=== PATIENT | male | born 1940 | race Caucasian/White ===

== ENCOUNTER 2021-10-19 10:25 | Outpatient (CLI) | payer MEDICARE, BC | END 2021-10-19 10:26 | disposition home or self-care (01) | LOC: CSHWCC 10:25 | PROVIDERS: ATTEND Nurse Practitioner Family | DX: L97.522 Non-pressure chronic ulcer of other part of left foot with fat layer exposed (principal); R60.0 Localized edema | CPT/HCPCS: 29581 ==

== ENCOUNTER 2021-11-03 08:19 | Outpatient (CLI) | payer MEDICARE, BC | END 2021-11-03 08:20 | disposition home or self-care (01) | LOC: CSHWCC 08:19 | PROVIDERS: ATTEND Nurse Practitioner Family | DX: L97.522 Non-pressure chronic ulcer of other part of left foot with fat layer exposed (principal); R60.0 Localized edema | CPT/HCPCS: 29581 ==

== ENCOUNTER 2021-11-07 12:47 | Outpatient (CLI) | payer MEDICARE, BC | END 2021-11-07 12:48 | disposition home or self-care (01) | LOC: CSHWCC 12:47 | PROVIDERS: ATTEND Nurse Practitioner Family | DX: L97.522 Non-pressure chronic ulcer of other part of left foot with fat layer exposed (principal); R60.0 Localized edema | CPT/HCPCS: 29581; 97139; G0463; 99213 ==

== ENCOUNTER 2021-11-09 09:45 | Outpatient (CLI) | payer MEDICARE, BC | END 2021-11-09 09:46 | disposition home or self-care (01) | LOC: CSHWCC 09:45 | PROVIDERS: ATTEND Nurse Practitioner Family | DX: L97.522 Non-pressure chronic ulcer of other part of left foot with fat layer exposed (principal); R60.0 Localized edema | CPT/HCPCS: 29581 ==

== ENCOUNTER 2021-11-11 10:19 | Outpatient (CLI) | payer MEDICARE, BC | END 2021-11-11 10:20 | disposition home or self-care (01) | LOC: CSHWCC 10:19 | PROVIDERS: ATTEND Nurse Practitioner Family | DX: L97.522 Non-pressure chronic ulcer of other part of left foot with fat layer exposed (principal); R60.0 Localized edema | CPT/HCPCS: 29581; 97139; G0463; 99212 ==

== ENCOUNTER 2021-11-14 13:29 | Outpatient (CLI) | payer MEDICARE, BC | END 2021-11-14 13:30 | disposition home or self-care (01) | LOC: CSHWCC 13:29 | PROVIDERS: ATTEND Nurse Practitioner Family | DX: L97.522 Non-pressure chronic ulcer of other part of left foot with fat layer exposed (principal); R60.0 Localized edema | CPT/HCPCS: 29581 ==

== ENCOUNTER 2021-11-16 13:35 | Outpatient (CLI) | payer MEDICARE, BC | END 2021-11-16 13:36 | disposition home or self-care (01) | LOC: CSHWCC 13:35 | PROVIDERS: ATTEND Nurse Practitioner Family | DX: L97.522 Non-pressure chronic ulcer of other part of left foot with fat layer exposed (principal); R60.0 Localized edema | CPT/HCPCS: 29581; 97139; G0463; 99213 ==

== ENCOUNTER 2021-11-21 10:18 | Outpatient (CLI) | payer MEDICARE, BC | END 2021-11-21 10:19 | disposition home or self-care (01) | LOC: CSHWCC 10:18 | PROVIDERS: ATTEND Nurse Practitioner Family | DX: L97.522 Non-pressure chronic ulcer of other part of left foot with fat layer exposed (principal); R60.0 Localized edema | CPT/HCPCS: 29581 ==

== ENCOUNTER 2021-11-23 10:02 | Outpatient (CLI) | payer MEDICARE, BC | END 2021-11-23 10:03 | disposition home or self-care (01) | LOC: CSHWCC 10:02 | PROVIDERS: ATTEND Nurse Practitioner Family | DX: L97.522 Non-pressure chronic ulcer of other part of left foot with fat layer exposed (principal); R60.0 Localized edema | CPT/HCPCS: 29581; 97139; G0463; 99213 ==

== ENCOUNTER 2021-11-25 09:00 | Outpatient (CLI) | payer MEDICARE, BC | END 2021-11-25 09:01 | disposition home or self-care (01) | LOC: CSHWCC 09:00 | PROVIDERS: ATTEND Nurse Practitioner Family | DX: L97.522 Non-pressure chronic ulcer of other part of left foot with fat layer exposed (principal); R60.0 Localized edema | CPT/HCPCS: 29581; 97139; G0463; 99212 ==

== ENCOUNTER 2021-11-28 14:00 | Outpatient (CLI) | payer MEDICARE, BC | END 2021-11-28 14:01 | disposition home or self-care (01) | LOC: CSHWCC 14:00 | PROVIDERS: ATTEND Nurse Practitioner Family | DX: L97.522 Non-pressure chronic ulcer of other part of left foot with fat layer exposed (principal); R60.0 Localized edema | CPT/HCPCS: 29581 ==

== ENCOUNTER 2021-12-09 08:42 | Outpatient (CLI) | payer MEDICARE, BC | END 2021-12-09 08:43 | disposition home or self-care (01) | LOC: CSHWCC 08:42 | PROVIDERS: ATTEND Nurse Practitioner Family | DX: L97.522 Non-pressure chronic ulcer of other part of left foot with fat layer exposed (principal); R60.0 Localized edema ==

== ENCOUNTER 2022-01-31 12:07 | Inpatient (IN) | payer MEDICARE, BC ==
[2022-01-31 13:12] LABS: Hemoglobin 12.4 g/dL (13.5-17.5); Mean Corpuscular HGB CONC 33.4 g/dL (32.0-36.0); Mean Corpuscular Hemoglobin 31.6 pg (27.0-33.0); Mean Corpuscular Volume 94.6 fl (81.2-95.1); Mean Platelet Volume 10.2 fl (7.4-10.4); Platelet Count 131 10x3/uL (150-450); RBC Distribution Width 15.1 % (11.5-14.5); Red Blood Cell (RBC) Count 3.92 10x6/uL (4.32-5.72); White Blood Cell (WBC) Count 4.4 10x3/uL (3.5-10.5)
[2022-01-31 13:24] LABS: Anion Gap 12 mmol/L (10-20); BUN (Urea Nitrogen) 20 mg/dL (8.4-25.7); Calc. Creatinine Clearance 0 mL/min (70-130); Carbon Dioxide 27 mmol/L (23-31); Chloride 102 mmol/L (98-107); Potassium 4.3 mmol/L (3.5-5.1); Sodium 137 mmol/L (136-145)
[2022-01-31 13:25] LABS: ALT (SGPT) 37 U/L (8-55); AST (SGOT) 45 U/L (5-34); Albumin 3.9 g/dL (3.4-4.8); Alkaline Phosphatase 94 U/L (40-110); Bilirubin, Total 0.8 mg/dL (0.2-1.2); Calcium 8.9 mg/dL (7.8-10.44); Estimated GFR 48; Globulin 3.3 g/dL (2.4-3.5); Glucose 142 mg/dL (83-110); Protein, Total 7.2 g/dL (5.8-8.1)
[2022-01-31] MEDS ORDERED: Cefepime 2 GM VIAL ONE (13:30)
[2022-01-31 13:37] LABS: MDiff Complete? YES
[2022-01-31] MEDS ORDERED: Vancomycin 1.5 GRAM/300 ML BAG 1.5 GM in Premix Bag 1 BAG IVPB SCH (13:45)
[2022-01-31 13:56] LABS: Eosinophils 2 % (0-10); Lymphocytes 26 % (21-51); Monocytes 17 % (0-10); Neutrophil 51 % (42-75); Reactive Lymphocytes 4 % (0-10)
[2022-01-31 13:59] LABS: Large Platelets SLIGHT; Platelet Morphology Comment Appears Adequate; RBC Morphology Normal
[2022-01-31 14:05] LABS: SARS-CoV-2 NAA Rapid Test Not Detected (NotDetected)
[2022-01-31] MEDS ORDERED: Ketorolac Tromethamine 30 MG/ML VIAL ONE (14:49)
[2022-01-31] MEDS ORDERED: HumaLOG 300 UNITS/3 ML VIAL SC PRN ×2 (15:21)
[2022-01-31] MEDS ORDERED: Dextrose 5% in Water 1,000 ML IV PRN (15:21)
[2022-01-31] MEDS ORDERED: Dextrose 50% Abboject 50 ML SYRINGE SLOW IVP PRN (15:21)
[2022-01-31] MEDS ORDERED: Acetaminophen 325 MG TAB PO PRN (15:21)
[2022-01-31 18:20] VITALS: BMI 26.0
[2022-01-31 20:03] LABS: Hemoglobin A1c 6.5 % (4.0-6.0)
[2022-01-31] MEDS ORDERED: Carvedilol 12.5 MG TAB PO SCH (21:00)
[2022-01-31] MEDS: Atorvastatin Calcium 20 MG TAB PO SCH (21:17)
[2022-01-31] MEDS: Sodium Chloride 0.9% 1,000 ML IV SCH (21:23)
[2022-01-31] MEDS: Pregabalin 50 MG CAP PO SCH (21:25)
[2022-01-31] MEDS: Carvedilol 12.5 MG TAB PO SCH (21:25)
[2022-01-31] MEDS: HYDROcodone/Acetaminophen 10/325 mg Tablet PO PRN (21:26)
[2022-02-01] MEDS ORDERED: Morphine 2 MG/ML VIAL ONE (01:25)
[2022-02-01] MEDS: Cefepime 1 GM in Sodium Chloride 0.9% 100 ML IVPB SCH ×3 (01:25→23:45)
[2022-02-01] MEDS ORDERED: Ondansetron PF 4 MG/2 ML Vial ONE (01:25)
[2022-02-01] MEDS ORDERED: Ondansetron PF 4 MG/2 ML Vial IVP PRN (05:07)
[2022-02-01] MEDS: Sodium Chloride 0.9% 1,000 ML IV SCH ×3 (05:31→21:24)
[2022-02-01 06:48] LABS: Anion Gap 12 mmol/L (10-20); BUN (Urea Nitrogen) 25 mg/dL (8.4-25.7); Calc. Creatinine Clearance 56 mL/min (70-130); Calcium 8.3 mg/dL (7.8-10.44); Carbon Dioxide 24 mmol/L (23-31); Chloride 108 mmol/L (98-107); Estimated GFR 59; Glucose 130 mg/dL (83-110); Potassium 4.5 mmol/L (3.5-5.1); Sodium 139 mmol/L (136-145)
[2022-02-01 06:49] LABS: Platelet Count 104 10x3/uL (150-450)
[2022-02-01 06:55] LABS: Hemoglobin 10.9 g/dL (13.5-17.5); MDiff Complete? YES; Manual Diff?? YES; Mean Corpuscular HGB CONC 34.1 g/dL (32.0-36.0); Mean Corpuscular Hemoglobin 32.2 pg (27.0-33.0); Mean Corpuscular Volume 94.4 fl (81.2-95.1); Mean Platelet Volume 10.1 fl (7.4-10.4); RBC Distribution Width 14.8 % (11.5-14.5); Red Blood Cell (RBC) Count 3.39 10x6/uL (4.32-5.72); White Blood Cell (WBC) Count 3.3 10x3/uL (3.5-10.5)
[2022-02-01 06:57] LABS: Band 3 % (5-11); Eosinophils 1 % (0-10); Lymphocytes 20 % (21-51); Monocytes 26 % (0-10); Neutrophil 50 % (42-75); Platelet Morphology Comment Appears Decreased
[2022-02-01] MEDS: Amiodarone 200 MG TAB PO SCH (09:49)
[2022-02-01] MEDS: HYDROcodone/Acetaminophen 10/325 mg Tablet PO PRN ×2 (09:49→21:21)
[2022-02-01] MEDS: Pregabalin 50 MG CAP PO SCH ×2 (09:50→21:23)
[2022-02-01] MEDS: Enoxaparin Sodium 40 MG/0.4 ML SYRINGE SC SCH (09:51)
[2022-02-01] MEDS: Citalopram 20 MG TAB PO SCH (09:51)
[2022-02-01] MEDS: Aspirin 81 mg Enteric Coated Tablet PO SCH (09:51)
[2022-02-01] MEDS: Morphine 2 MG/ML VIAL SLOW IVP PRN (18:36)
[2022-02-01] MEDS: Carvedilol 12.5 MG TAB PO SCH (21:21)
[2022-02-01] MEDS: Atorvastatin Calcium 20 MG TAB PO SCH (21:21)
[2022-02-02 03:59] LABS: Hemoglobin 10.6 g/dL (13.5-17.5)
[2022-02-02 04:02] LABS: Anion Gap 10 mmol/L (10-20); BUN (Urea Nitrogen) 20 mg/dL (8.4-25.7); Calc. Creatinine Clearance 75 mL/min (70-130); Carbon Dioxide 23 mmol/L (23-31); Chloride 108 mmol/L (98-107); Estimated GFR 83; Glucose 120 mg/dL (83-110); Mean Corpuscular HGB CONC 33.3 g/dL (32.0-36.0); Mean Corpuscular Hemoglobin 31.8 pg (27.0-33.0); Mean Corpuscular Volume 95.5 fl (81.2-95.1); Mean Platelet Volume 10.3 fl (7.4-10.4); Platelet Count 106 10x3/uL (150-450); Potassium 4.4 mmol/L (3.5-5.1); RBC Distribution Width 14.9 % (11.5-14.5); Red Blood Cell (RBC) Count 3.33 10x6/uL (4.32-5.72); Sodium 137 mmol/L (136-145); White Blood Cell (WBC) Count 3.1 10x3/uL (3.5-10.5)
[2022-02-02 04:56] LABS: MDiff Complete? YES
[2022-02-02 05:05] LABS: Band 3 % (5-11); Eosinophils 2 % (0-10); Lymphocytes 28 % (21-51); Monocytes 19 % (0-10); Neutrophil 48 % (42-75)
[2022-02-02 05:20] LABS: Anisocytosis SLIGHT = 6-15 cells (100X) (0-5/hpf)
[2022-02-02 05:21] LABS: Platelet Morphology Comment Appears Adequate
[2022-02-02] MEDS: HYDROcodone/Acetaminophen 10/325 mg Tablet PO PRN (05:31)
[2022-02-02] MEDS: Pregabalin 50 MG CAP PO SCH ×2 (09:03→20:20)
[2022-02-02] MEDS: Enoxaparin Sodium 40 MG/0.4 ML SYRINGE SC SCH (09:03)
[2022-02-02] MEDS: Aspirin 81 mg Enteric Coated Tablet PO SCH (09:04)
[2022-02-02] MEDS: Citalopram 20 MG TAB PO SCH (09:04)
[2022-02-02] MEDS: Amiodarone 200 MG TAB PO SCH (09:05)
[2022-02-02] MEDS: Cefepime 1 GM in Sodium Chloride 0.9% 100 ML IVPB SCH (11:52)
[2022-02-02] MEDS: Sodium Chloride 0.9% 1,000 ML IV SCH ×2 (16:39→23:51)
[2022-02-02] MEDS: Morphine 2 MG/ML VIAL SLOW IVP PRN (20:16)
[2022-02-02] MEDS: Carvedilol 12.5 MG TAB PO SCH (20:20)
[2022-02-02] MEDS: Atorvastatin Calcium 20 MG TAB PO SCH (20:20)
[2022-02-03] MEDS: Cefepime 1 GM in Sodium Chloride 0.9% 100 ML IVPB SCH (00:07)
[2022-02-03] MEDS: Sodium Chloride 0.9% 1,000 ML IV SCH ×2 (03:59→14:20)
[2022-02-03 04:56] LABS: Hemoglobin 10.9 g/dL (13.5-17.5); Mean Corpuscular HGB CONC 33.1 g/dL (32.0-36.0); Mean Corpuscular Hemoglobin 31.7 pg (27.0-33.0); Mean Corpuscular Volume 95.6 fl (81.2-95.1); Mean Platelet Volume 10.3 fl (7.4-10.4); Platelet Count 106 10x3/uL (150-450); RBC Distribution Width 14.6 % (11.5-14.5); Red Blood Cell (RBC) Count 3.44 10x6/uL (4.32-5.72); White Blood Cell (WBC) Count 2.6 10x3/uL (3.5-10.5)
[2022-02-03 05:15] LABS: Anion Gap 10 mmol/L (10-20); BUN (Urea Nitrogen) 14 mg/dL (8.4-25.7); Calc. Creatinine Clearance 87 mL/min (70-130); Calcium 8.4 mg/dL (7.8-10.44); Carbon Dioxide 25 mmol/L (23-31); Chloride 110 mmol/L (98-107); Estimated GFR 88; Glucose 103 mg/dL (83-110); Potassium 4.3 mmol/L (3.5-5.1); Sodium 141 mmol/L (136-145)
[2022-02-03 05:49] LABS: MDiff Complete? YES
[2022-02-03 05:57] LABS: Eosinophils 1 % (0-10); Lymphocytes 27 % (21-51); Monocytes 24 % (0-10); Neutrophil 36 % (42-75); Reactive Lymphocytes 12 % (0-10)
[2022-02-03 06:01] LABS: Polychromasia SLIGHT = 2-3 cells (100X) (0-2/hpf)
[2022-02-03 06:02] LABS: Platelet Morphology Comment Appears Decreased
[2022-02-03] MEDS ORDERED: Cefepime 2 GM in Sodium Chloride 0.9% 100 ML IVPB SCH (07:15)
[2022-02-03] MEDS: Amiodarone 200 MG TAB PO SCH (09:30)
[2022-02-03] MEDS: Enoxaparin Sodium 40 MG/0.4 ML SYRINGE SC SCH (09:30)
[2022-02-03] MEDS: Pregabalin 50 MG CAP PO SCH ×2 (09:30→20:35)
[2022-02-03] MEDS: Aspirin 81 mg Enteric Coated Tablet PO SCH (09:31)
[2022-02-03] MEDS: Citalopram 20 MG TAB PO SCH (09:31)
[2022-02-03] MEDS: HYDROcodone/Acetaminophen 10/325 mg Tablet PO PRN (12:12)
[2022-02-03] MEDS: Cefepime 2 GM in Sodium Chloride 0.9% 100 ML IVPB SCH ×2 (12:12→23:19)
[2022-02-03] MEDS ORDERED: Losartan 25 MG TAB PO SCH (14:15)
[2022-02-03] MEDS ORDERED: Senokot 8.6 MG TAB PO SCH (14:15)
[2022-02-03] MEDS: Morphine 2 MG/ML VIAL SLOW IVP PRN (17:56)
[2022-02-03] MEDS: Carvedilol 12.5 MG TAB PO SCH (20:35)
[2022-02-03] MEDS: Atorvastatin Calcium 20 MG TAB PO SCH (20:35)
[2022-02-04 00:08] LABS: Reflex for Review?? YES
[2022-02-04 04:26] LABS: Anion Gap 10 mmol/L (10-20); BUN (Urea Nitrogen) 14 mg/dL (8.4-25.7); Calc. Creatinine Clearance 96 mL/min (70-130); Calcium 8.7 mg/dL (7.8-10.44); Carbon Dioxide 26 mmol/L (23-31); Chloride 107 mmol/L (98-107); Estimated GFR 91; Glucose 98 mg/dL (83-110); Sodium 139 mmol/L (136-145)
[2022-02-04 04:45] LABS: Hemoglobin 10.9 g/dL (13.5-17.5); Mean Corpuscular Hemoglobin 32.1 pg (27.0-33.0); Mean Corpuscular Volume 94.4 fl (81.2-95.1); Mean Platelet Volume 10.2 fl (7.4-10.4); Platelet Count 123 10x3/uL (150-450); RBC Distribution Width 14.5 % (11.5-14.5)
[2022-02-04 05:53] LABS: MDiff Complete? YES
[2022-02-04 06:09] LABS: Band 3 % (5-11); Eosinophils 3 % (0-10); Lymphocytes 28 % (21-51); Monocytes 22 % (0-10); Neutrophil 41 % (42-75); Reactive Lymphocytes 2 % (0-10)
[2022-02-04 06:11] LABS: Platelet Morphology Comment Appears Decreased
[2022-02-04] MEDS: Citalopram 20 MG TAB PO SCH (09:47)
[2022-02-04] MEDS: Amiodarone 200 MG TAB PO SCH (09:47)
[2022-02-04] MEDS: Losartan Potassium 50 MG TAB PO SCH (09:47)
[2022-02-04] MEDS: Enoxaparin Sodium 40 MG/0.4 ML SYRINGE SC SCH (09:47)
[2022-02-04] MEDS: Aspirin 81 mg Enteric Coated Tablet PO SCH (09:47)
[2022-02-04] MEDS: Pregabalin 50 MG CAP PO SCH ×2 (09:48→20:34)
[2022-02-04] MEDS: Cefepime 2 GM in Sodium Chloride 0.9% 100 ML IVPB SCH (12:48)
[2022-02-04] MEDS ORDERED: Senokot 8.6 MG TAB PO PRN (16:59)
[2022-02-04] MEDS ORDERED: Senokot 8.6 MG TAB PO SCH (17:00)
[2022-02-04] MEDS: Atorvastatin Calcium 20 MG TAB PO SCH (20:34)
[2022-02-04] MEDS: Carvedilol 12.5 MG TAB PO SCH (20:34)
[2022-02-04] MEDS: Morphine 2 MG/ML VIAL SLOW IVP PRN (21:46)
[2022-02-05] MEDS: Cefepime 2 GM in Sodium Chloride 0.9% 100 ML IVPB SCH ×2 (00:22→12:53)
[2022-02-05 04:56] LABS: Hemoglobin 11.7 g/dL (13.5-17.5); Mean Corpuscular HGB CONC 34.4 g/dL (32.0-36.0); Mean Corpuscular Hemoglobin 31.9 pg (27.0-33.0); Mean Corpuscular Volume 92.6 fl (81.2-95.1); Mean Platelet Volume 9.7 fl (7.4-10.4); Platelet Count 131 10x3/uL (150-450); RBC Distribution Width 14.6 % (11.5-14.5); Red Blood Cell (RBC) Count 3.67 10x6/uL (4.32-5.72); White Blood Cell (WBC) Count 2.9 10x3/uL (3.5-10.5)
[2022-02-05 05:28] LABS: Anion Gap 8 mmol/L (10-20); BUN (Urea Nitrogen) 12 mg/dL (8.4-25.7); Calc. Creatinine Clearance 91 mL/min (70-130); Calcium 9.1 mg/dL (7.8-10.44); Carbon Dioxide 29 mmol/L (23-31); Chloride 107 mmol/L (98-107); Estimated GFR 89; Glucose 99 mg/dL (83-110); Potassium 4.2 mmol/L (3.5-5.1); Sodium 140 mmol/L (136-145)
[2022-02-05 06:35] LABS: MDiff Complete? YES
[2022-02-05 06:36] LABS: Platelet Morphology Comment Appears Decreased
[2022-02-05 06:39] LABS: Band 2 % (5-11); Lymphocytes 35 % (21-51); Metamyelocyte 2 % (0-0); Monocytes 25 % (0-10); Neutrophil 35 % (42-75); Reactive Lymphocytes 1 % (0-10)
[2022-02-05] MEDS: Enoxaparin Sodium 40 MG/0.4 ML SYRINGE SC SCH (09:21)
[2022-02-05] MEDS: Pregabalin 50 MG CAP PO SCH ×2 (09:22→21:05)
[2022-02-05] MEDS: Amiodarone 200 MG TAB PO SCH (09:23)
[2022-02-05] MEDS: Citalopram 20 MG TAB PO SCH (09:23)
[2022-02-05] MEDS: Losartan Potassium 50 MG TAB PO SCH (09:23)
[2022-02-05] MEDS: Aspirin 81 mg Enteric Coated Tablet PO SCH (09:24)
[2022-02-05] MEDS: Atorvastatin Calcium 20 MG TAB PO SCH (21:04)
[2022-02-05] MEDS: Carvedilol 12.5 MG TAB PO SCH (21:04)
[2022-02-05] MEDS: Morphine 2 MG/ML VIAL SLOW IVP PRN (21:10)
[2022-02-06] MEDS: Cefepime 2 GM in Sodium Chloride 0.9% 100 ML IVPB SCH ×2 (00:02→12:11)
[2022-02-06] MEDS: Losartan Potassium 50 MG TAB PO SCH (05:14)
[2022-02-06] MEDS: Enoxaparin Sodium 40 MG/0.4 ML SYRINGE SC SCH (08:40)
[2022-02-06] MEDS: Pregabalin 50 MG CAP PO SCH ×2 (08:41→20:49)
[2022-02-06] MEDS: Aspirin 81 mg Enteric Coated Tablet PO SCH (08:42)
[2022-02-06] MEDS: Citalopram 20 MG TAB PO SCH (08:42)
[2022-02-06] MEDS: Amiodarone 200 MG TAB PO SCH (08:44)
[2022-02-06] MEDS: Morphine 2 MG/ML VIAL SLOW IVP PRN (10:06)
[2022-02-06] MEDS: HYDROcodone/Acetaminophen 10/325 mg Tablet PO PRN (12:10)
[2022-02-06] MEDS ORDERED: hydrALAZINE 25 MG TAB PO SCH (18:00)
[2022-02-06] MEDS: Cefdinir 300 MG CAP PO SCH (20:50)
[2022-02-06] MEDS: Atorvastatin Calcium 20 MG TAB PO SCH (20:50)
[2022-02-06] MEDS: Carvedilol 12.5 MG TAB PO SCH (20:50)
[2022-02-07] MEDS ORDERED: Nitroglycerin 2% Ointment 1 INCH/1 GM Packet TOP SCH (01:15)
[2022-02-07 08:07] VITALS: BP 188/84; TEMP 97.1
[2022-02-07] MEDS: Enoxaparin Sodium 40 MG/0.4 ML SYRINGE SC SCH (08:52)
[2022-02-07] MEDS: Pregabalin 50 MG CAP PO SCH (08:53)
[2022-02-07] MEDS: Aspirin 81 mg Enteric Coated Tablet PO SCH (08:55)
[2022-02-07] MEDS: Cefdinir 300 MG CAP PO SCH (08:55)
[2022-02-07] MEDS: Citalopram 20 MG TAB PO SCH (08:56)
[2022-02-07] MEDS: Losartan Potassium 50 MG TAB PO SCH (08:56)
[2022-02-07] MEDS: Amiodarone 200 MG TAB PO SCH (08:56)
[2022-02-07] MEDS ORDERED: hydrALAZINE 25 MG TAB PO SCH (09:00)
[2022-02-07] MEDS: Morphine 2 MG/ML VIAL SLOW IVP PRN (10:22)
== END 2022-02-07 10:59 | disposition home health service (06) | DRG 300 ==
LOC: CSHERS 12:07 → CSHTELE 17:30
PROVIDERS: ADMIT Internal Medicine; ATTEND Internal Medicine
DX: I83.225 Varicose veins of left lower extremity with both ulcer other part of foot and inflammation (principal); E87.2 Acidosis; N17.9 Acute kidney failure, unspecified; L03.116 Cellulitis of left lower limb; D61.818 Other pancytopenia; I25.10 Atherosclerotic heart disease of native coronary artery without angina pectoris; I48.0 Paroxysmal atrial fibrillation; E11.40 Type 2 diabetes mellitus with diabetic neuropathy, unspecified; I10 Essential (primary) hypertension; Z20.822 Contact with and (suspected) exposure to COVID-19; E78.5 Hyperlipidemia, unspecified; D69.6 Thrombocytopenia, unspecified; I50.9 Heart failure, unspecified; Z96.659 Presence of unspecified artificial knee joint; L97.529 Non-pressure chronic ulcer of other part of left foot with unspecified severity; T36.1X5A Adverse effect of cephalosporins and other beta-lactam antibiotics, initial encounter; E11.622 Type 2 diabetes mellitus with other skin ulcer; Z85.46 Personal history of malignant neoplasm of prostate; Z95.5 Presence of coronary angioplasty implant and graft; Z88.5 Allergy status to narcotic agent; Z88.1 Allergy status to other antibiotic agents; Z88.8 Allergy status to other drugs, medicaments and biological substances; Z79.82 Long term (current) use of aspirin; Z90.49 Acquired absence of other specified parts of digestive tract; Z79.899 Other long term (current) drug therapy
CPT/HCPCS: 36415; 36416; 80048; 80053; 83036; 83605; 85025; 85060; 85652; 86140; 87040; 87070; 87077; 87186; 87205; 93005; 93923; 94760; 96365; 96366; 96367; 96375; 97139; J0692; J1650; J1885; J2270; J2405; J3370; J3490; J7050; U0002

== ENCOUNTER 2022-02-26 12:50 | Emergency (ER) | payer MEDICARE, BC ==
[2022-02-26 13:51] LABS: Hemoglobin 11.5 g/dL (13.5-17.5); Mean Corpuscular Hemoglobin 31.4 pg (27.0-33.0); Mean Corpuscular Volume 95.1 fl (81.2-95.1); Mean Platelet Volume 10.3 fl (7.4-10.4); Platelet Count 152 10x3/uL (150-450); RBC Distribution Width 14.7 % (11.5-14.5); Red Blood Cell (RBC) Count 3.66 10x6/uL (4.32-5.72); White Blood Cell (WBC) Count 5.5 10x3/uL (3.5-10.5)
[2022-02-26 13:52] LABS: MDiff Complete? YES
[2022-02-26 14:00] LABS: ALT (SGPT) 21 U/L (8-55); AST (SGOT) 26 U/L (5-34); Albumin 3.7 g/dL (3.4-4.8); Alkaline Phosphatase 95 U/L (40-110); Anion Gap 13 mmol/L (10-20); BUN (Urea Nitrogen) 38 mg/dL (8.4-25.7); Bilirubin, Total 0.6 mg/dL (0.2-1.2); Calc. Creatinine Clearance 0 mL/min (70-130); Calcium 8.8 mg/dL (7.8-10.44); Carbon Dioxide 26 mmol/L (23-31); Chloride 104 mmol/L (98-107); Estimated GFR 26; Globulin 2.7 g/dL (2.4-3.5); Glucose 115 mg/dL (83-110); Potassium 4.9 mmol/L (3.5-5.1); Protein, Total 6.4 g/dL (5.8-8.1); Sodium 138 mmol/L (136-145)
[2022-02-26] MEDS ORDERED: Cefepime 2 GM VIAL ONE (14:05)
[2022-02-26 14:26] LABS: Lymphocytes 13 % (21-51)
[2022-02-26 14:29] LABS: Eosinophils 2 % (0-10); Monocytes 25 % (0-10)
[2022-02-26 14:30] LABS: Neutrophil 60 % (42-75)
[2022-02-26 15:55] LABS: SARS-CoV-2 NAA Rapid Test Not Detected (NotDetected)
== END 2022-02-26 16:52 | disposition short-term general hospital (02) ==
LOC: CSHERS 12:50
DX: L03.116 Cellulitis of left lower limb (principal); E78.5 Hyperlipidemia, unspecified; I10 Essential (primary) hypertension; Z20.822 Contact with and (suspected) exposure to COVID-19
CPT/HCPCS: 73700; 80053; 83605; 85025; 86140; 87040; 96365; 96366; 96367; 99284; U0002; 36415; J0692; J3370

== ENCOUNTER 2023-04-30 13:53 | Observation (INO) | payer MEDICARE, BC ==
[2023-04-30 15:13] LABS: #Neutrophils 2.6 10x3/uL (1.5-8.4); %Eosinophils 0.4 % (0.0-6.0); %Lymphocytes 22.9 % (18.0-47.0); %Monocytes 20.3 % (0.0-10.0); %Neutrophils 55.8 % (40.0-75.0); Hematocrit 35.6 % (38.8-50.0); Hemoglobin 12.1 g/dL (13.5-17.5); Mean Corpuscular Hemoglobin 31.8 pg (27.0-33.0); Mean Corpuscular Volume 93.7 fl (81.2-95.1); Mean Platelet Volume 11.3 fl (7.4-10.4); Platelet Count 113 10x3/uL (150-450); RBC Distribution Width 14.7 % (11.5-14.5); White Blood Cell (WBC) Count 4.7 10x3/uL (3.5-10.5)
[2023-04-30 15:17] LABS: ALT (SGPT) 34 U/L (8-55); AST (SGOT) 51 U/L (5-34); Alkaline Phosphatase 97 U/L (40-110); Anion Gap 17 mmol/L (10-20); BUN (Urea Nitrogen) 25 mg/dL (8.4-25.7); Bilirubin, Total 0.4 mg/dL (0.2-1.2); CK (CPK) 40 U/L (30-200); Calc. Creatinine Clearance 0 mL/min (70-130); Calcium 9.3 mg/dL (7.8-10.44); Carbon Dioxide 26 mmol/L (23-31); Chloride 102 mmol/L (98-107); Estimated GFR 48; Globulin 2.4 g/dL (2.4-3.5); Glucose 59 mg/dL (83-110); Magnesium 1.5 mg/dL (1.6-2.6); Potassium 3.6 mmol/L (3.5-5.1); Protein, Total 6.4 g/dL (5.8-8.1); Sodium 141 mmol/L (136-145)
[2023-04-30 15:23] LABS: Troponin I Less than 0.010 ng/mL (< 0.028)
[2023-04-30 16:04] LABS: Bilirubin 1+ (Negative); Blood, Urine Negative (Negative); Clarity Clear (Clear); Glucose, Urine (Dipstick) Normal (Negative); Ketone, Urine Negative (Negative); Leukocyte Negative (Negative); Nitrite Positive (Negative); Protein, Urine (Dipstick) 30 mg/dl (Neg-Trace)
[2023-04-30 16:55] LABS: Bacteria/HPF 1+ HPF (None Seen); CAUTI Indications for Culture Alt mental st,lethar; Mucous/LPF 1+ LPF (<2+); RBC/HPF 0-3 HPF (0-3); Squamous Epithelial 0-3 HPF (0-3); WBC/HPF 0-3 HPF (0-3)
[2023-04-30 16:57] LABS: Urine Culture Reflex No No
[2023-04-30] MEDS ORDERED: cefTRIAXone (ROCEPHIN) 1 GM VIAL ONE (17:52)
[2023-04-30] MEDS ORDERED: Dextrose 50% Abboject 50 ML SYRINGE SLOW IVP PRN (18:40)
[2023-04-30] MEDS ORDERED: Dextrose 5% in Water 1,000 ML IV PRN (18:40)
[2023-04-30] MEDS ORDERED: Glucagon 1 MG/ML KIT IM PRN (18:40)
[2023-04-30] MEDS ORDERED: HumaLOG 300 UNITS/3 ML VIAL SC PRN (18:40)
[2023-04-30] MEDS ORDERED: hydrALAZINE 20 MG/ML VIAL SLOW IVP PRN (18:40)
[2023-04-30] MEDS ORDERED: Labetalol HCl 100 MG/20 ML VIAL SLOW IVP PRN (18:40)
[2023-04-30] MEDS ORDERED: Aspirin Chewable 81 MG TAB ONE (18:43)
[2023-04-30 18:49] LABS: Platelet Adequacy Comment Appears Decreased; RBC Morph Comment Within Normal Limits
[2023-04-30 19:31] LABS: ALT (SGPT) 34 U/L (8-55); AST (SGOT) 49 U/L (5-34); Albumin 3.9 g/dL (3.4-4.8); Alkaline Phosphatase 98 U/L (40-110); Anion Gap 17 mmol/L (10-20); BUN (Urea Nitrogen) 22 mg/dL (8.4-25.7); Bilirubin, Total 0.4 mg/dL (0.2-1.2); Calc. Creatinine Clearance 0 mL/min (70-130); Calcium 9.3 mg/dL (7.8-10.44); Carbon Dioxide 27 mmol/L (23-31); Chloride 102 mmol/L (98-107); Estimated GFR 61; Globulin 2.8 g/dL (2.4-3.5); Glucose 91 mg/dL (83-110); Mean Platelet Volume 10.8 fl (7.4-10.4); Potassium 3.6 mmol/L (3.5-5.1); Protein, Total 6.7 g/dL (5.8-8.1); Sodium 142 mmol/L (136-145)
[2023-04-30 19:32] LABS: #Monocytes 0.7 10x3/uL (0.0-1.1); #Neutrophils 2.2 10x3/uL (1.5-8.4); %Eosinophils 0.5 % (0.0-6.0); %Lymphocytes 25.3 % (18.0-47.0); %Monocytes 18.2 % (0.0-10.0); %Neutrophils 55.2 % (40.0-75.0); Hematocrit 37.8 % (38.8-50.0); Hemoglobin 12.8 g/dL (13.5-17.5); Mean Corpuscular HGB CONC 33.9 g/dL (32.0-36.0); Mean Corpuscular Hemoglobin 31.8 pg (27.0-33.0); Platelet Count 117 10x3/uL (150-450); RBC Distribution Width 14.6 % (11.5-14.5); Red Blood Cell (RBC) Count 4.02 10x6/uL (4.32-5.72)
[2023-04-30 20:45] VITALS: BMI 20.7
[2023-04-30] MEDS ORDERED: Atorvastatin Calcium 40 MG TAB PO SCH (21:00)
[2023-04-30] MEDS ORDERED: Carvedilol 6.25 MG TAB PO SCH (22:15)
[2023-04-30] MEDS ORDERED: Pregabalin 50 MG CAP PO SCH (22:15)
[2023-04-30] MEDS ORDERED: Magnesium 2 GM/50 ML(in water) 2 GM in Premix Bag 1 BAG IVPB SCH (22:30)
[2023-05-01 01:59] LABS: Amphetamine Not Detected (NotDetected); Barbiturates Screen Not Detected (NotDetected); Benzodiazepine Screen Not Detected (NotDetected); Cocaine Metabolite Screen Not Detected (NotDetected); Methadone Not Detected (NotDetected); Methamphetamine Not Detected (NotDetected); Opiate Screen Not Detected (NotDetected); Oxycodone Screen Not Detected (NotDetected); Phencyclidine (PCP) Not Detected (NotDetected); THC/Cannabinoid Screen Not Detected (NotDetected); Tricyclic Screen Not Detected (NotDetected)
[2023-05-01 03:03] VITALS: BP 128/64; TEMP 98.1
[2023-05-01] MEDS ORDERED: Aspirin 81 mg Enteric Coated Tablet PO SCH (09:00)
[2023-05-01] MEDS ORDERED: cefTRIAXone\\ROCEPHIN 1 GM in Sodium Chloride 0.9% 100 ML IVPB SCH (17:00)
== END 2023-05-01 01:35 | disposition short-term general hospital (02) ==
LOC: CSHERS 13:53 → CSHTELE 18:34
PROVIDERS: ADMIT Family Medicine; ATTEND Family Medicine
DX: G93.40 Encephalopathy, unspecified (principal); R41.82 Altered mental status, unspecified; I25.10 Atherosclerotic heart disease of native coronary artery without angina pectoris; I10 Essential (primary) hypertension; E78.5 Hyperlipidemia, unspecified; F32.A Depression, unspecified; N39.0 Urinary tract infection, site not specified; E83.42 Hypomagnesemia; D69.6 Thrombocytopenia, unspecified; Z88.0 Allergy status to penicillin; Z88.1 Allergy status to other antibiotic agents; Z88.5 Allergy status to narcotic agent; Z88.8 Allergy status to other drugs, medicaments and biological substances; Z79.84 Long term (current) use of oral hypoglycemic drugs; Z79.82 Long term (current) use of aspirin; Z79.899 Other long term (current) drug therapy; Z96.659 Presence of unspecified artificial knee joint; Z90.89 Acquired absence of other organs
CPT/HCPCS: 36415; 36416; 70450; 70551; 71045; 80048; 80053; 80306; 81001; 82550; 83735; 84484; 85025; 87086; 93005; 93880; 95711; 95819; 95957; 96374; 96375; G0378; J0696; J3475; J3490

== ENCOUNTER 2024-04-16 22:14 | Inpatient (IN) | payer MEDICARE, BC ==
[~2024-04-16 22:14] MED LIST: Iopamidol 300 61% 100 ML VIAL FS ONE
[2024-04-16 23:19] LABS: ALT (SGPT) 46 U/L (8-55); AST (SGOT) 60 U/L (5-34); Albumin 3.8 g/dL (3.4-4.8); Alkaline Phosphatase 100 U/L (40-110); Anion Gap 13 mmol/L (10-20); BUN (Urea Nitrogen) 11 mg/dL (8.4-25.7); Bilirubin, Total 0.6 mg/dL (0.2-1.2); Calc. Creatinine Clearance 0 mL/min (70-130); Calcium 9.7 mg/dL (7.8-10.44); Carbon Dioxide 23 mmol/L (23-31); Chloride 106 mmol/L (98-107); Estimated GFR 85; Globulin 3.7 g/dL (2.4-3.5); Glucose 128 mg/dL (83-110); Potassium 4.4 mmol/L (3.5-5.1); Protein, Total 7.5 g/dL (5.8-8.1); Sodium 138 mmol/L (136-145)
[2024-04-16 23:23] LABS: Bilirubin Neg (Negative); Blood, Urine 10 (Negative); Clarity Clear (Clear); Glucose, Urine (Dipstick) Normal (Negative); Ketone, Urine Negative (Negative); Leukocyte Negative (Negative); Nitrite Negative (Negative); Protein, Urine (Dipstick) Negative (Neg-Trace); Urobilinogen Normal mg/dL (Less than 2)
[2024-04-16] MEDS ORDERED: Ipratropium/Albuterol 3 ML NEB ONE (23:45)
[2024-04-16 23:48] LABS: Bacteria/HPF Rare-Few HPF (None Seen); CAUTI Indications for Culture Alt mental st,lethar; RBC/HPF 0-3 HPF (0-3); Squamous Epithelial None Seen HPF (0-3); WBC/HPF 0-3 HPF (0-3)
[2024-04-16 23:48] LABS: Lipase 17 U/L (8-78); Magnesium 1.5 mg/dL (1.6-2.6)
[2024-04-16 23:49] LABS: Urine Culture Reflex No No
[2024-04-16 23:49] LABS: Hematocrit 34.8 % (38.8-50.0); Hemoglobin 11.7 g/dL (13.5-17.5); Mean Corpuscular HGB CONC 33.6 g/dL (32.0-36.0); Mean Corpuscular Hemoglobin 31.1 pg (27.0-33.0); Mean Corpuscular Volume 92.6 fL (81.2-95.1); Mean Platelet Volume 10.7 fL (7.4-10.4); Platelet Count 100 10x3/uL (150-450); RBC Distribution Width 15.8 % (11.5-14.5); Red Blood Cell (RBC) Count 3.76 10x6/uL (4.32-5.72); White Blood Cell (WBC) Count 9.5 10x3/uL (3.5-10.5)
[2024-04-16 23:50] LABS: #Basophils 0.01 10x3/uL (0.0-0.2); #Eosinphils 0.08 10x3/uL (0.0-0.5); #Monocytes 1.89 10x3/uL (0.0-1.1); #Neutrophils 5.77 10x3/uL (1.5-8.4); %Basophils 0.1 % (0.0-2.0); %Eosinophils 0.9 % (0.0-6.0); %Lymphocytes 15.8 % (18.0-47.0); %Monocytes 20.4 % (0.0-10.0); %Neutrophils 62.3 % (40.0-75.0)
[2024-04-16 23:54] LABS: Troponin I Less than 0.010 ng/mL (< 0.028)
[2024-04-16] MEDS ORDERED: methylPREDNISolone Sod Succ/PF 125 MG/2 ML VIAL ONE (23:57)
[2024-04-17] MEDS ORDERED: cefTRIAXone (ROCEPHIN) 2 GM VIAL ONE (00:35)
[2024-04-17] MEDS ORDERED: Piperacillin/Tazobactam 4.5 GM VIAL ONE (02:08)
[2024-04-17] MEDS ORDERED: Acetaminophen 325 MG TAB PO PRN (03:02)
[2024-04-17] MEDS ORDERED: Senokot S 8.6-50 MG TAB PO PRN (03:02)
[2024-04-17] MEDS ORDERED: Doxycycline 100 MG VIAL ONE (03:31)
[2024-04-17] MEDS ORDERED: Magnesium 2 GM/50 ML BAG (IN WATER) ONE (03:32)
[2024-04-17] MEDS: Magnesium 2 GM/50 ML(in water) 2 GM in Premix 1 BAG IVPB SCH ×2 (03:40→11:10)
[2024-04-17] MEDS ORDERED: Doxycycline 100 MG in Syringe 0 ML IVPB SCH (04:00)
[2024-04-17] MEDS: Doxycycline 100 MG in Sodium Chloride 0.9% 100 ML IVPB SCH (04:43)
[2024-04-17 06:22] LABS: Anion Gap 15 mmol/L (10-20); BUN (Urea Nitrogen) 11 mg/dL (8.4-25.7); Calc. Creatinine Clearance 0 mL/min (70-130); Calcium 8.5 mg/dL (7.8-10.44); Carbon Dioxide 22 mmol/L (23-31); Chloride 106 mmol/L (98-107); Estimated GFR 85; Glucose 213 mg/dL (83-110); Potassium 4.2 mmol/L (3.5-5.1); Sodium 139 mmol/L (136-145)
[2024-04-17] MEDS ORDERED: Ipratropium/Albuterol 3 ML NEB ONE (06:56)
[2024-04-17 06:57] LABS: #Eosinphils 0.02 10x3/uL (0.0-0.5); #Monocytes 0.42 10x3/uL (0.0-1.1); #Neutrophils 4.54 10x3/uL (1.5-8.4); %Eosinophils 0.3 % (0.0-6.0); %Lymphocytes 12.4 % (18.0-47.0); %Monocytes 7.3 % (0.0-10.0); %Neutrophils 79.3 % (40.0-75.0); Hematocrit 34.1 % (38.8-50.0); Hemoglobin 11.3 g/dL (13.5-17.5); Mean Corpuscular HGB CONC 33.1 g/dL (32.0-36.0); Mean Corpuscular Hemoglobin 30.9 pg (27.0-33.0); Mean Corpuscular Volume 93.2 fL (81.2-95.1); Mean Platelet Volume 11.3 fL (7.4-10.4); Platelet Count 90 10x3/uL (150-450); RBC Distribution Width 15.9 % (11.5-14.5); Red Blood Cell (RBC) Count 3.66 10x6/uL (4.32-5.72); White Blood Cell (WBC) Count 5.7 10x3/uL (3.5-10.5)
[2024-04-17 06:58] LABS: Platelet Adequacy Comment Appears Decreased
[2024-04-17 06:59] LABS: RBC Morph Comment Within Normal Limits
[2024-04-17] MEDS: Ipratropium/Albuterol 3 ML NEB NEB SCH (07:05)
[2024-04-17] MEDS ORDERED: metFORMIN 500 MG TAB PO SCH (08:00)
[2024-04-17] MEDS: Carvedilol 6.25 MG TAB PO SCH (08:00)
[2024-04-17] MEDS ORDERED: Glucagon 1 MG/ML KIT IM PRN (08:41)
[2024-04-17] MEDS ORDERED: Dextrose 5% in Water 1,000 ML IV PRN (08:41)
[2024-04-17] MEDS ORDERED: Dextrose 50% Abboject 50 ML SYRINGE SLOW IVP PRN (08:41)
[2024-04-17] MEDS: Aspirin 81 mg Enteric Coated Tablet PO SCH (09:29)
[2024-04-17] MEDS: dilTIAZem CD 120 MG CAP PO SCH (09:29)
[2024-04-17] MEDS: Amiodarone 200 MG TAB PO SCH (09:29)
[2024-04-17] MEDS: busPIRone HCl 15 MG TAB PO SCH (09:30)
[2024-04-17] MEDS: Losartan 50 MG TAB PO SCH (09:30)
[2024-04-17] MEDS: Enoxaparin 40 MG (0.4 mL) SYRINGE SC SCH (09:31)
[2024-04-17] MEDS: Pregabalin 75 MG CAP PO SCH (09:31)
[2024-04-17 09:43] VITALS: BMI 23.2
[2024-04-17] MEDS: FLU (Fluad Triv) TS24-25 (65UP)/MF59C/PF 45 MCG/0.5 ML Syringe IM ONE (10:17)
[2024-04-17] MEDS: Insulin Regular, Human 100 UNIT/ML 10 ML VIAL SC PRN ×2 (12:19→21:03)
[2024-04-17] MEDS: metroNIDAZOLE 500 MG TAB PO SCH (15:00)
[2024-04-17] MEDS: Pregabalin 50 MG CAP PO SCH (20:57)
[2024-04-17] MEDS: Atorvastatin Calcium 20 MG TAB PO SCH (20:57)
[2024-04-17] MEDS: Thiamine 100 MG TAB PO SCH (20:57)
[2024-04-17] MEDS: Multivit, Therapeutic 1 TAB PO SCH (20:57)
[2024-04-17] MEDS: Folic Acid 1 MG TAB PO SCH (20:57)
[2024-04-17] MEDS: Doxycycline 100 MG CAP PO SCH (20:58)
[2024-04-17] MEDS: Cyanocobalamin (Vitamin B-12) 1,000 MCG TAB PO SCH (20:58)
[2024-04-17] MEDS: Clotrimazole/Betamethasone Cr 15 GM TUBE TOP SCH (21:04)
[2024-04-18] MEDS: cefTRIAXone\\ROCEPHIN 2 GM in Sodium Chloride 0.9% 100 ML IVPB SCH (00:58)
[2024-04-18 05:20] LABS: Hematocrit 30.5 % (38.8-50.0); Hemoglobin 10.4 g/dL (13.5-17.5); MDiff Complete? YES; Mean Corpuscular HGB CONC 34.1 g/dL (32.0-36.0); Mean Corpuscular Hemoglobin 31.2 pg (27.0-33.0); Mean Corpuscular Volume 91.6 fL (81.2-95.1); Mean Platelet Volume 11.3 fL (7.4-10.4); Platelet Count 91 10x3/uL (150-450); RBC Distribution Width 15.5 % (11.5-14.5); Red Blood Cell (RBC) Count 3.33 10x6/uL (4.32-5.72); White Blood Cell (WBC) Count 8.3 10x3/uL (3.5-10.5)
[2024-04-18 05:24] LABS: ALT (SGPT) 33 U/L (8-55); AST (SGOT) 30 U/L (5-34); Albumin 3.2 g/dL (3.4-4.8); Alkaline Phosphatase 88 U/L (40-110); Anion Gap 13 mmol/L (10-20); BUN (Urea Nitrogen) 22 mg/dL (8.4-25.7); Bilirubin, Total 0.3 mg/dL (0.2-1.2); Calc. Creatinine Clearance 62 mL/min (70-130); Calcium 8.7 mg/dL (7.8-10.44); Carbon Dioxide 24 mmol/L (23-31); Chloride 108 mmol/L (98-107); Estimated GFR 78; Globulin 3.2 g/dL (2.4-3.5); Glucose 188 mg/dL (83-110); Potassium 4.1 mmol/L (3.5-5.1); Protein, Total 6.4 g/dL (5.8-8.1); Sodium 141 mmol/L (136-145)
[2024-04-18 08:09] LABS: Lymphocytes 11 % (21-51); Monocytes 11 % (0-10); Neutrophil 78 % (42-75)
[2024-04-18 08:11] LABS: Platelet Adequacy Comment Appears Decreased; RBC Morph Comment Within Normal Limits
[2024-04-18] MEDS: Magnesium 2 GM/50 ML(in water) 2 GM in Premix 1 BAG IVPB SCH (10:15)
[2024-04-18] MEDS: Lidocaine 4% Patch TD SCH (11:15)
[2024-04-18] MEDS: Polyethylene Glycol 3350 17 GM Packet PO PRN (11:56)
[2024-04-18] MEDS: Senokot S 8.6-50 MG TAB PO SCH (20:55)
[2024-04-19] MEDS: REMOVAL LIDOCAINE TOP SCH (00:47)
[2024-04-19 06:36] LABS: Anion Gap 15 mmol/L (10-20); BUN (Urea Nitrogen) 19 mg/dL (8.4-25.7); Calc. Creatinine Clearance 74 mL/min (70-130); Calcium 8.3 mg/dL (7.8-10.44); Carbon Dioxide 23 mmol/L (23-31); Chloride 110 mmol/L (98-107); Estimated GFR 87; Glucose 142 mg/dL (83-110); Potassium 3.7 mmol/L (3.5-5.1); Sodium 144 mmol/L (136-145)
[2024-04-19 06:51] LABS: Hemoglobin 11.2 g/dL (13.5-17.5); MDiff Complete? YES; Mean Corpuscular HGB CONC 33.9 g/dL (32.0-36.0); Mean Corpuscular Hemoglobin 31.2 pg (27.0-33.0); Mean Corpuscular Volume 91.9 fL (81.2-95.1); Platelet Count 107 10x3/uL (150-450); Red Blood Cell (RBC) Count 3.59 10x6/uL (4.32-5.72); White Blood Cell (WBC) Count 5.1 10x3/uL (3.5-10.5)
[2024-04-19 07:36] LABS: Band 1 % (5-11); Eosinophils 2 % (0-10); Lymphocytes 31 % (21-51); Monocytes 25 % (0-10); Neutrophil 41 % (42-75)
[2024-04-19 07:38] LABS: Platelet Adequacy Comment Appears Decreased; RBC Morph Comment Within Normal Limits
[2024-04-19] MEDS: metFORMIN 500 MG TAB PO SCH (08:31)
[2024-04-19 10:51] LABS: Magnesium 1.7 mg/dL (1.6-2.6)
[2024-04-19] MEDS: Pregabalin 50 MG CAP PO SCH (12:24)
[2024-04-19] MEDS: Magnesium 2 GM/50 ML(in water) 2 GM in Premix 1 BAG IVPB SCH (14:30)
[2024-04-19 17:05] LABS: Hemoglobin A1c 6.8 % (4.0-6.0)
[2024-04-20 06:17] LABS: Hematocrit 35.7 % (38.8-50.0); MDiff Complete? YES; Mean Corpuscular HGB CONC 33.6 g/dL (32.0-36.0); Mean Corpuscular Hemoglobin 30.8 pg (27.0-33.0); Mean Corpuscular Volume 91.8 fL (81.2-95.1); Mean Platelet Volume 10.5 fL (7.4-10.4); Platelet Count 113 10x3/uL (150-450); RBC Distribution Width 16.4 % (11.5-14.5); Red Blood Cell (RBC) Count 3.89 10x6/uL (4.32-5.72); White Blood Cell (WBC) Count 4.6 10x3/uL (3.5-10.5)
[2024-04-20 06:34] LABS: Anion Gap 15 mmol/L (10-20); BUN (Urea Nitrogen) 18 mg/dL (8.4-25.7); Calc. Creatinine Clearance 70 mL/min (70-130); Calcium 8.8 mg/dL (7.8-10.44); Carbon Dioxide 24 mmol/L (23-31); Chloride 107 mmol/L (98-107); Estimated GFR 85; Glucose 141 mg/dL (83-110); Magnesium 1.9 mg/dL (1.6-2.6); Sodium 142 mmol/L (136-145)
[2024-04-20 08:02] LABS: Band 1 % (5-11); Lymphocytes 33 % (21-51); Monocytes 21 % (0-10); Neutrophil 45 % (42-75)
[2024-04-20 08:11] LABS: Anisocytosis SLIGHT = 6-15 cells (100X) (0-5/hpf); Ovalocytes SLIGHT = 2-5 cells (100X) (0-1/hpf); Platelet Adequacy Comment Appears Decreased
[2024-04-20] MEDS: Cefdinir 300 MG CAP PO SCH (09:02)
[2024-04-20 11:10] VITALS: BP 136/68; TEMP 98
[2024-04-20] MEDS: Magnesium Oxide 400 MG TAB PO SCH (12:22)
== END 2024-04-20 15:05 | DRG 177 ==
LOC: CSHERS 22:14 → CSHERHOLD 04-17 02:02 → CSHTELE 04-17 07:53
PROVIDERS: ADMIT Family Medicine; ATTEND Family Medicine
DX: J69.0 Pneumonitis due to inhalation of food and vomit (principal); G93.41 Metabolic encephalopathy; I48.20 Chronic atrial fibrillation, unspecified; J44.0 Chronic obstructive pulmonary disease with (acute) lower respiratory infection; E83.42 Hypomagnesemia; I25.10 Atherosclerotic heart disease of native coronary artery without angina pectoris; E11.9 Type 2 diabetes mellitus without complications; Z96.653 Presence of artificial knee joint, bilateral; I10 Essential (primary) hypertension; J18.9 Pneumonia, unspecified organism; E78.5 Hyperlipidemia, unspecified; D69.6 Thrombocytopenia, unspecified; K74.60 Unspecified cirrhosis of liver; Z95.5 Presence of coronary angioplasty implant and graft; Z88.8 Allergy status to other drugs, medicaments and biological substances; Z88.1 Allergy status to other antibiotic agents; Z79.84 Long term (current) use of oral hypoglycemic drugs; Z95.0 Presence of cardiac pacemaker; Z85.46 Personal history of malignant neoplasm of prostate; Z90.79 Acquired absence of other genital organ(s); Z79.899 Other long term (current) drug therapy; Z79.82 Long term (current) use of aspirin; Z88.5 Allergy status to narcotic agent; Z85.831 Personal history of malignant neoplasm of soft tissue; Z89.611 Acquired absence of right leg above knee
CPT/HCPCS: 36415; 36416; 71045; 71260; 74177; 80048; 80053; 81001; 83036; 83605; 83690; 83735; 83880; 84145; 84443; 84484; 85025; 87040; 87086; 93005; 93010; 94640; 94760; 96374; 96375; J0696; J1650; J1815; J2543; J2919; J3475; J7620; Q9967